=== PATIENT | female | born 1995 | race Caucasian/White ===

== ENCOUNTER 2016-09-03 19:34 | Emergency (ER) | payer MEDICAID, OTHER ==
[~2016-09-03] VITALS: Ht 157.5 cm; Wt 68.0 kg
[2016-09-03 19:37] VITALS: Ht 157.5 cm; Wt 68.0 kg
[2016-09-03] MEDS ORDERED: ACET500C5 PO (21:18)
[2016-09-03] MEDS ORDERED: ACETAMINOPHEN 325 MG TAB PO ONE (21:30)
--- NOTE | 2016-09-03 21:30 | ERD ---
ER Documentation Chief Complaint Date/Time DATE: 09/03/16 TIME: 21:22 Chief Complaint preg 16 weeks - c/o vomiting headache x 15 days (not currently vomiting) HPI 20-year-old female who is approximately 16 weeks is sent here by her clinic for IV fluids. Patient stated that she vomits about twice a day, and drinks 3 bottles of water a day. Her main concern is that she has had headache for about 2 weeks and she feels dizzy. Described dizziness as she is about to fall over, worse at night. Headache is not constant, pressure-like sensation across the whole head. Denies fever or chills. Denies photophobia. Denies abdominal or pelvic pain. Denies vaginal bleeding. Patient is . ROS All systems reviewed and are negative except as per history of present illness. Medications Home Meds Active Scripts Acetaminophen* (Tylophen*) 500 Mg Capsule, 1 CAP PO Q6H Y for PAIN AND OR ELEVATED TEMP, #20 CAP Prov:ANGELA SHAHID PARTS ADMINISTRATOR 09/03/16 PMhx/Soc Medical and Surgical Hx: pt denies Medical Hx, pt denies Surgical Hx Hx Alcohol Use: No Hx Substance Use: No Hx Tobacco Use: No Smoking Status: Never smoker Physical Exam Vitals Vital Signs Date Time Temp Pulse Resp B/P Pulse Ox O2 Delivery O2 Flow Rate FiO2 09/03/16 19:37 98.2 81 20 119/70 100 Physical Exam General: Well-developed, well-nourished, conscious and coherent, in no distress Skin: Warm and dry without rash, good texture and turgor Head: Normocephalic without evidence of trauma Eyes: Sclera and conjunctivae normal; pupils equal, round, and reactive to light; extraocular movements are intact Neck: Supple without meningismus or adenopathy. Carotids are equal. Trachea midline. No bruits or JVD. Bilateral sternocleidomastoid and upper trapezius muscle tightness noted. Chest: Normal AP diameter. Good expansion without retractions. Nontender. Lungs are clear to auscultate bilaterally with good tidal volume Heart: Regular rate and rhythm. No murmur, rub, or gallops heard Abdomen: Soft and nontender without masses, guarding, or rebound. Bowel sounds are active. No hepatosplenomegaly Back: Without spinal or CVA tenderness Pelvis: Nontender to palpation and stable to compression Extremities: Full range of motion. Good strength bilaterally. No clubbing, cyanosis, or edema. Peripheral pulses are intact. Sensation intact Neuro: Alert and oriented 4, GCS 15. Cranial nerves grossly intact. Motor and sensory exams nonfocal. Moves all extremities. Speech clear. Gait normal Results 24 hrs Current Medications Medications (Trade) Dose Ordered Sig/Bridget Route PRN Reason Start Time Stop Time Status Last Admin Dose Admin Acetaminophen (Tylenol Tab) 650 mg ONCE ONCE PO 09/03/16 21:30 09/03/16 21:31 09/03/16 21:21 Procedures/MDM Well-appearing 20-year-old female who is approximately 16 weeks is complaining of headache 2 weeks. Her symptoms exam findings are consistent with tension headache. Ibuprofen given to the patient in the ED for pain. Patient is advised on using heating pad and obtain massage to help ease her headache Patient sent here by her clinic for IV fluids. Since patient stated that she only vomits twice a day, and able to drink 3 bottles of water as a day. I doubt that she has hyperemesis gravidarum, I doubt that she is needing IV fluid treatment at this time. Patient stated that she has the antinausea medication given by her clinic. Advised patient to continue to maintain fluid intake. But return to ED if she is unable to maintain a fluid intake due to vomiting. Patient does not have any pelvic pain or vaginal bleeding, I doubt threatened . Patient appears well, stable for discharge and outpatient management. Medical decision making shared with patient and family. Education provided to patient and family. Patient and family expressed understanding of the plan. Medications on discharge: Tylenol. Follow-up: Primary care provider in 2-3 days or return to ED if worse. Disclaimer: Inadvertent spelling and grammatical errors are likely due to EHR/ dictation software use and do not reflect on the overall quality of patient care. Also, please note that the electronic time recorded on this note does not necessarily reflect the actual time of the patient encounter. Departure Diagnosis: Primary Impression: Headache Headache type: tension-type Headache chronicity pattern: acute headache Intractability: not intractable Qualified Code: G44.209 - Acute non intractable tension-type headache Additional Impression: Weeks of gestation: 16 weeks Qualified Code: Z3A.16 - 16 weeks gestation of Condition: Stable Patient Instructions: Self-Care for Headaches, Headache, Tension Referrals: [facility] Usted se sosa hecho un examen mdico de control que le indica que no est en wilfrido condicin que requiera tratamiento urgente en el Departamento de Emergencia. Un estudio ms profundo y el tratamiento de [place] condicin pueden esperar sin ningn riesgo hasta que usted sea atendida/o en el consultorio de [place] mdico o wilfrido cl arsh. Es responsabilidad suya arreglar wilfrido holger para el seguimiento del oliverio. MANEJO DE CONDICIONES NO URGENTES EN EL FUTURO 1) Si usted tiene un mdico de atencin primaria: Usted debera llamar a [place] mdico de atencin primaria antes de venir al departamento de emergencia. Despus de las horas de consultorio, [place] doctor o [place] asociado/a est disponible por telfono. El mdico o enfermero de monique en el servicio telefnico puede asesorarle por elva medio para atender el problema, o oliverio contrario se puede programar wilfrido holger. 2) Si usted no tiene un mdico de atencin primaria: Llame al mdico o clnica de referencia que aparece abajo praneeth las horas de consultorio para hacer wilfrido holger para que le vean. CLINICAS: [facility] [phone] [address] [facility] [phone] [facility] [phone] [facility]. [facility] 339 [phone] [address] [place] [phone] [facility]. [phone] SPARE PERSON [place] [address] [facility] [address] [place] [address] OFFICE FAX , MATI[place] [address] [place] [address] [address]. DIAZ, [place] [address] [place] [address] DR [facility]NA[facility]IDES, [facility] [address] [address] [facility], [address], [place] [address] DR UMANZOR, [facility] [address] [place] [address] [facility] [address] [place] [address] [address] [facility] [address] - [address] EMMANUEL, CHELLE [address], [place] [address] DR VENTURA, ZUNILDA [address] [facility]. [address], [place] [address] DR TORRES, FARID [address] [place] [address] Additional Instructions: Llame al doctor MAANA y stanislaw wilfrido HOLGER PARA DENTRO DE 2-3 GUTIÉRREZ.Dgale a la secretaria que nosotros le instruimos hacer esta holger.Avise o llame si gilliland condicin se empeora antes de la holger. Regresa aqui si peor o no mejor. ANGELA SHAHID NP Sep 03, 2016 21:30
== END 2016-09-03 21:31 | disposition home or self-care (01) ==
LOC: FTE 19:34
DX: O99.352 Diseases of the nervous system complicating pregnancy, second trimester (principal); G44.209 Tension-type headache, unspecified, not intractable; Z3A.16 16 weeks gestation of pregnancy
CPT/HCPCS: Z7502; Z7610; 99283

== ENCOUNTER 2017-01-08 20:09 | Outpatient (CLI) | payer MEDICAID ==
[~2017-01-08] VITALS: Ht 139.7 cm; Wt 72.1 kg
[~2017-01-08 20:09] MED LIST: ACET500C5 PO
[2017-01-08 20:29] VITALS: Ht 139.7 cm; Wt 72.1 kg
[2017-01-08 20:31] VITALS: BP 120/77; PULSE 96; RESP 18
--- NOTE | 2017-01-08 21:20 | RADRPT ---
PROCEDURE: US OB. CLINICAL INDICATION: Size and dates TECHNIQUE: Multiple sonographic images of the pelvis and gravid uterus were obtained. The images were reviewed on a PACS workstation. COMPARISON: No prior studies are available for comparison. FINDINGS: There is a single viable intrauterine gestation. Cardiac activity is present with 142 beats per min jacki. There is a vertex presentation. The placenta is anterior. There is no evidence for an abruption or placenta previa. Measurements were made in order to determine age. The results are as follows: BPD =7.7 cm HC =27.8 cm AC =26.1 cm FL =5.9 cm Estimated gestational age of approximately 30 weeks and 4 days based on ultrasound measurements. Clinical age: 33 weeks and 2 days. The estimated date of delivery is 03/15/17, based on ultrasound measurements. The EFW = 1565 g, <3%, based on LMP age. RPTAT: AA IMPRESSION: Single viable intrauterine gestation of approximately 30 weeks and 4 days based on ultrasound measu rements. .Cayden Blanco MD, Date Time Electronically viewed and signed by .Cayden Blanco MD, on 01/08/2017 21:20 .S/
--- NOTE | 2017-01-08 21:21 | RADRPT ---
PROCEDURE: US OB biophysical profile. CLINICAL INDICATION: decreased movements, TECHNIQUE: Multiple sonographic images of the pelvis were obtained. The images were reviewed on a PACS workstation. COMPARISON: No prior studies are available for comparison. FINDINGS: There is a single viable intrauterine gestation. Cardiac activity is present with 140 beats per min [place]. There is a vertex presentation. The placenta is anterior. There is no evidence of placental abruption. There is a normal amount of amniotic fluid with an BARYR = 9.8 cm. Biophysical profile: movement 2/2 tone 2/2. breathing 2/2 BARRY 2/2 Total 09/15 RPTAT: AA . IMPRESSION: Normal biophysical profile. . .Cayden Blanco MD, MD Date Time Electronically viewed and signed by .Cayden Blanco MD, MD on 01/08/2017 21:20 .S/
--- NOTE | 2017-01-08 22:06 | PN ---
Triage Information Date/Time Reason for visit: Oligohydramnios Weeks of Gestation 33w 2d /Para Objective Vital Signs Date Time Temp Pulse Resp B/P Pulse Ox O2 Delivery O2 Flow Rate FiO2 01/08/17 20:31 98.1 96 18 120/77 Heart Rate Comments reactive Contractions: None Results/Medications Imaging Results BPP 8/8, BARRY 9.8, efw 1565g c/w 3% Disposition: Discharge Assessment/Plan 21 y/o at 33w 2d with IUGR, normal BARRY -discharge home -f/u with OB, discussed perinatology and biweekly NSTs WELLINGTON DEMARCO Jan 08, 2017 22:06
--- NOTE | 2017-01-08 22:54 | TRIAGE ---
OB Triage Datetime Report Generated by CPN: 01/08/2017 22:54 Datetime: 01/08/2017 22:15 Stage of : OB Triage Datetime: 01/08/2017 21:58 Labor Evaluation Frequency: 0 Monitor Mode: External Resting Tone [place]: Relaxed Heart Rate FHR Baseline Rate: 125 Monitor Mode: External US Variability: Moderate 6-25 bpm Accelerations: 15X15 Decelerations: None Category: Category I Datetime: 01/08/2017 21:51 Stage of : OB Triage Datetime: 01/08/2017 21:41 Stage of : OB Triage Datetime: 01/08/2017 21:25 Vaginal Exam Membrane Status: Intact Datetime: 01/08/2017 21:00 Stage of : OB Triage Monitor Mode: External Monitor Mode: External US Datetime: 01/08/2017 20:40 Stage of : OB Triage Labor Evaluation Frequency: 0 Monitor Mode: External Resting Tone [place]: Relaxed Heart Rate FHR Baseline Rate: 140 Monitor Mode: External US Variability: Moderate 6-25 bpm Accelerations: 15X15 Decelerations: None Category: Category I Datetime: 01/08/2017 20:26 Stage of : OB Triage Assessment Type: Admission Assessment Maternal Assessment Level of Consciousness: Fully Conscious DTR's/Clonus: DTRs 2+; No Clonus Headache: Denies Blurred Vision: No Respiratory Effort: Unlabored; Regular Rhythm; Equal Expansion Breath Sounds, Left: Clear and Equal Breath Sounds, Right: Clear and Equal Nausea/Vomiting: Denies RUQ Epigastric Pain: Denies Facial Edema: None Temperature Route: Axillary Fall Risk Assessment History of Falling: (0) No Secondary Diagnosis: (0) No Ambulatory Aid: (0) Bedrest/Nurse Assist IV Therapy: (0) No Gait: (0) Normal/Bedrest/Immobile Mental Status: (0) Oriented to Own Ability Fall Score: 0 Fall Risk Score Definition: No Risk: No action required Datetime: 01/08/2017 20:22 Time of Arrival: 01/08/2017 19:58 EGA: 33.2 Arrived By: Ambulatory Chief Complaint: SENT FROM CLINIC FOR R/O LOW BARRY. PT FATOU SHE HAS SOME BACK PAIN Movement: Present Contractions: Irregular Rupture of Membranes: Unsure Vaginal Bleeding: None Vaginal Discharge: Present Recent Sexual Intercouse: Denies Abdominal Trauma: Not Applicable Patient Complaints: Contractions; Back Pain Time Provider Notified: 01/08/2017 20:30 Provider Notified: ELIZABETHJE Initial Plan: EFM, US NST BARRY BPP, EFW Datetime: 01/08/2017 20:21 Time of Arrival: 01/08/2017 19:58 Datetime: 01/08/2017 20:16 Labor Evaluation Frequency: none Resting Tone [place]: Relaxed Contraction Comments: placed on efm Heart Rate FHR Baseline Rate: 145 Monitor Mode: External US
== END 2017-01-08 22:17 | disposition home or self-care (01) ==
LOC: OBT 20:09 → L-D 20:10 → OBT 22:17
PROVIDERS: ATTEND Obstetrics & Gynecology
DX: O41.03X0 Oligohydramnios, third trimester, not applicable or unspecified (principal); Z3A.33 33 weeks gestation of pregnancy
CPT/HCPCS: 76815; 76818

== ENCOUNTER 2017-01-13 12:03 | Inpatient (IN) | payer MEDICAID ==
[~2017-01-13] VITALS: Ht 152.4 cm; Wt 71.2 kg
[2017-01-13 12:46] VITALS: BP 115/69; PULSE 93; RESP 18
[2017-01-13] MEDS ORDERED: LACTATED RINGER'S 500 ML IV ONE (14:00)
[2017-01-13] MEDS: BETAMET NA PHOS/AC(6 MG/ML) 5ML INJ IM SCH (15:50)
[2017-01-13] MEDS: LACTATED RINGER'S 1,000 ML IV SCH ×2 (15:54→22:17)
--- NOTE | 2017-01-13 23:43 | HP ---
Date/Time of Note Date/Time of Note DATE: 01/13/17 TIME: 23:38 OB - History Hx of Present Free Text/Dictation January 13, 2017 : 3 Para: 1 Care: Good Care Ultrasounds: Abnormal US findings (IUGR and borderline low amniotic fluid), Other Abnormal Ultrasound Findings: IUGR Borderline low amniotic fluid noted today and ultrasound. BARRY 5.7 Obstetrical Complications: Growth Restriction, Other (IUGR) Medical Complications: None Other Concerns: 21-year-old with IUP at 34 weeks and 2 days today here for NST/BPP due to IUGR. She was noted to have borderline amniotic fluid. BARRY was 5.7. Due to low BARRY and IUGR patient was admitted to antepartum service for IV hydration for 24 hours and repeat BARRY. She also will be monitored continuously. Due to the risk of delivery secondary to IUGR and borderline low amniotic fluid discussed with the patient regarding steroids. Will receive the first dose of steroids today and the second after 24 hours. She also will be seen by perinatology and neonatology as well. Patient denies any symptom or complaint. Past Family/Social History * Past Medical, Surgical, Family and Obstetric Histories reviewed from chart. OB Admission Exam Vital Signs Vital Signs Vital Signs Date Time Temp Pulse Resp B/P Pulse Ox O2 Delivery O2 Flow Rate FiO2 01/13/17 12:46 98.0 93 18 115/69 Room Air Physical Exam HEENT: WNL Heart: Rhythm Normal Lungs: Clear Abdomen: WNL Reflexes: Normal Cervical Dilatation: None Effacement: 0% Station: -3 OB Assessment/Plan Other Assessment: IUP at 34 weeks and 2 days IUGR Low amniotic fluid noted. BARRY 5.7 Patient currently being followed by testing twice a weeks due to IUGR Will be admitted for IV hydration Repeat ultrasound after 24 hours of hydration Continuous monitoring Consider anterior steroid. Will receive first dose today and a second dose after 24 hours Neonatology /perinatology consultation Plan of care discussed with the patient. Patient verbalized understanding and had no questions HOANG MANCIA MD Jan 13, 2017 23:43
[2017-01-14] MEDS: LACTATED RINGER'S 1,000 ML IV SCH ×3 (04:59→19:30)
--- NOTE | 2017-01-14 05:34 | RADRPT ---
PROCEDURE: Biophysical profile. CLINICAL INDICATION: Pelvic pain. TECHNIQUE: Multiple sonographic images of the pelvis were obtained with transabdominal technique. COMPARISON: 01/08/2017. FINDINGS: There is a single living intrauterine gestation with the fetus in a vertex position. The placenta i s anterior in location, grade II. heart tones of 136 beats per minute are identified. There i s decreased amniotic fluid volume with an BARRY of 3.8 cm. breathing movements = 2 Gross body movements = 2 tone = 2 Qualitative AFV = 0 IMPRESSION: Biophysical profile 6 out of 8. Oligohydramnios with an BARRY of 3.8 cm. A call report was made to the patient's sherman nurse (Merna) at 05:30 a.m. .Keyshawn Boyer MD, MD Date Time Electronically viewed and signed by .Keyshawn Boyer MD, on 01/14/2017 05:34 .T/
[2017-01-14] MEDS: PRENATAL VITAMIN PO SCH (10:31)
[2017-01-14] MEDS: FERROUS SULFATE (EC) 325 MG TAB PO SCH (10:31)
--- NOTE | 2017-01-14 13:15 | QN ---
Documentation Comment She is afebrile her vital signs are stable, heart tracing reactive with no deceleration and some accelerations. BARRY today 3.6, has she has received 2 doses of steroids. Consultation with perinatologist recommended hydration with daily BARRY, and to continue expecting management. MARISABEL PIMENTEL MD Jan 14, 2017 13:15
[2017-01-14] MEDS: BETAMET NA PHOS/AC(6 MG/ML) 5ML INJ IM SCH (15:45)
--- NOTE | 2017-01-14 17:47 | CONS ---
DATE OF ADMISSION: 01/13/2017 DATE OF CONSULTATION: 01/14/2017 This is a followup note on the perinatology consult done in the clinic. I do recommend, since her A FI today is less than the BARRY at the time of admission yesterday, the patient should be managed in-h ouse with continuous heart tone monitoring. Delivery is recommended if persistent nonreassuri ng heart tones, if the BARRY lowers further or if there is nonreassuring umbilical artery Dopple r studies as the patient is IUGR; otherwise at 37 weeks. Please note that I reviewed the patient's heart tone status. There are some spontaneous decel erations but in general, heart tone is reassuring but it has to be monitored very, very closel y as decreased heart tones and the baby's IUGR increases the risk of nonreassuring heart tones. Dictated By: BLAS WHITFIELD MD ST/NTS Conf#: [id number] DID#: [id number] CC: MARISABEL PIMENTEL MD;*EndCC*
[2017-01-15] MEDS: LACTATED RINGER'S 1,000 ML IV SCH ×3 (01:52→15:40)
[2017-01-15] MEDS: PRENATAL VITAMIN PO SCH (09:56)
[2017-01-15] MEDS: FERROUS SULFATE (EC) 325 MG TAB PO SCH (09:56)
--- NOTE | 2017-01-15 14:13 | PERINOTE ---
Date/Time of Note Date/Time of Note DATE: 01/15/17 TIME: 14:08 Assessment/Recommendations Other Assessments Oligohydramnios, prior to term History of variable decelerations, none seen on recent record Recommendations: Would perform daily BPP. If the BPP is less than 6 (including NST), would favor delivery. If the BPP is 6 or more and the BARRY remains less than 5, would deliver at 37 weeks GA. OB Subjective Free Text/Dictaton Patient admitted with oligohydramnios not responsive to hydration. HD# 3 IUP @ 34W4D Complaints/Overnight events BARRY on 01/14 is 3.8cm, with BPP of 6/8 Current Medications Current Medications Lactated Ringer's (Lr) 1,000 ml @ 150 mls/hr Q6H40M IV Last administered on 09:50; Admin Dose 150 MLS/HR; Start 01/13/17 at 15:28 Prenat Multivit/ [place]/Iron/Folic Ac () 1 tab DAILY PO Last administered on 01/15/17 09:56; Admin Dose 1 TAB; Start 01/14/17 at 09:00 Ferrous Sulfate (Ferrous Sulfate (Ec)) 325 mg DAILY PO Last administered on 09:56; Admin Dose 325 MG; Start 01/14/17 at 09:00 Acetaminophen (Tylenol Tab) 650 mg Q4H PRN PO PAIN AND OR ELEVATED TEMP; Start 01/13/17 at 15:30 OB Admission Exam Physical Exam Vitals: Vital Signs Date Time Temp Pulse Resp B/P Pulse Ox O2 Delivery O2 Flow Rate FiO2 01/13/17 12:46 98.0 93 18 115/69 Room Air Heart Rate: 140's Accelerations: Accelerations Present Decelerations: No Decelerations Varibility: Moderate Contractions on Admission: None CLAUDE REINOSO MD Jan 15, 2017 14:13
--- NOTE | 2017-01-15 16:30 | RADRPT ---
PROCEDURE: Obstetrical ultrasound for biophysical profile CLINICAL INDICATION: Biophysical profile. . TECHNIQUE: Obstetrical ultrasound of the uterus for biophysical profile. Transabdominal views are obtained. COMPARISON: US PELVIS 01/14/2017 FINDINGS: Single intrauterine gestation. Presentation: Cephalic. Placenta: Anterior. No evidence of placental abruption. No evidence of placenta previa. breathing movement = 2/2 tone = 2/2 motion = 2/2 BARRY = 2/2 BARRY = 9.6 cm heart rate: 132 beats per minute IMPRESSION: Single intrauterine gestation. Biophysical profile 09/15 BARRY = 9.6 cm, improved RPTAT: AADD .Russell Grubbs MD, MD Date Time Electronically viewed and signed by .Russell Grubbs MD, on 01/15/2017 16:29 .B/
--- NOTE | 2017-01-15 16:38 | RADRPT ---
PROCEDURE: Umbilical artery Doppler. CLINICAL INDICATION: Small for gestational age. TECHNIQUE: Multiple sonographic images of the gravid uterus were obtained utilizing reyes-scale katherin ging. Sagittal and transverse images were obtained. Umbilical artery Doppler was performed. The i mages were reviewed on a PACS workstation. COMPARISON: No prior studies are available for comparison. FINDINGS: There is a single live intrauterine . heart rate is 141 beats per minute. The umbilical artery systolic to diastolic ratio measured at 3 locations is 2.4, 2.6, and 2.9. Placenta is anterior left grade II. Position is cephalic. IMPRESSION: 1. The umbilical artery systolic to diastolic ratio is 2.4, 2.6, and 2.9 measured at 3 separate loc ations. RPTAT: QQ .Lele Borrero MD, Date Time Electronically viewed and signed by .Lele Borrero MD, on 01/15/2017 16:38 .R/
--- NOTE | 2017-01-15 19:34 | QN ---
Documentation Comment Patient has no complaint Afebrile VSS Strip Category I BPP 09/15 BARRY 9.6 Continue with present care. DEANNA DIAZ MD Jan 15, 2017 19:34
[2017-01-16] MEDS: LACTATED RINGER'S 1,000 ML IV SCH ×3 (01:27→07:45)
[2017-01-16] MEDS: PRENATAL VITAMIN PO SCH (08:56)
[2017-01-16] MEDS: FERROUS SULFATE (EC) 325 MG TAB PO SCH (08:56)
--- NOTE | 2017-01-16 15:42 | RADRPT ---
PROCEDURE: US OB. CLINICAL INDICATION: Pelvic pain, oligohydramnios TECHNIQUE: Multiple sonographic images of the pelvis were obtained. The images were reviewed on a PACS workstation. COMPARISON: 01/15/2017 FINDINGS: There is a single viable intrauterine gestation. Cardiac activity is present with 138 beats per min jacki There is a vertex presentation. The placenta is anterior. There is no evidence for an abruption or placenta previa. There is a normal amount of amniotic fluid with an BARRY = 16.7 cm There are no adnexal masses.. IMPRESSION: 1. Single viable intrauterine gestation in cephalic presentation. 2. Anterior placenta without evidence of previa or abruption. 3. Normal amount of amniotic fluid with an BARRY of 16.7 cm RPTAT:AAJJ Physician Fred Date Time Electronically viewed and signed by Physician Fred on 01/16/2017 15:42 /
--- NOTE | 2017-01-16 17:21 | QN ---
Documentation Comment No complaint Afebrile VSS Strip category I BARRY 16 Continue with in hospital care. DEANNA DIAZ MD Jan 16, 2017 17:21
[2017-01-17] MEDS: FERROUS SULFATE (EC) 325 MG TAB PO SCH (08:56)
[2017-01-17] MEDS: PRENATAL VITAMIN PO SCH (08:56)
--- NOTE | 2017-01-17 10:31 | RADRPT ---
PROCEDURE: Limited OB ultrasound. CLINICAL INDICATION: Amniotic fluid volume. Oligohydramnios on 01/15/2017 TECHNIQUE: Sonographic evaluation to assess the amniotic fluid volume was performed. Transabdomin al imaging of the gravid uterus was performed. COMPARISON: 01/16/2017 FINDINGS: Single live intrauterine with cardiac activity is identified. The amniotic fluid in dex equals 14.6 cm. Cephalic presentation. Heart rate 134 beats per minute. IMPRESSION: 1. Amniotic fluid index within normal limits equals 14.6 cm. RPTAT: QQ .Don August MD, MD Date Time Electronically viewed and signed by .Don August MD, MD on 01/17/2017 10:30 .L/
--- NOTE | 2017-01-17 14:30 | QN ---
Documentation Comment C/O slight nausea. No other compllaint. AFebrile VSS Strip Category I BARRY 14 Will get CBC, CMP and U/A. Continue with in hospital care. DEANNA DIAZ MD Jan 17, 2017 14:30
[2017-01-17 15:03] LABS: BASOPHILS % 0.2 % (0.0-2.0); EOSINOPHILS # 0.1 10^3/ul (0.0-0.5); EOSINOPHILS % 0.9 % (0.0-7.0); HEMATOCRIT 40.4 % (37.0-47.0); HEMOGLOBIN 13.2 g/dl (12.0-16.0); LYMPHOCYTES # 1.2 10^3/ul (0.8-2.9); LYMPHOCYTES % 14.2 % (15.0-51.0); MEAN CORPUSCULAR HEMOGLOBIN 28.1 pg (29.0-33.0); MEAN CORPUSCULAR HGB CONC 32.7 g/dl (32.0-37.0); MEAN CORPUSCULAR VOLUME 86.1 fl (82.0-101.0); MEAN PLATELET VOLUME 11.4 fl (7.4-10.4); MONOCYTE # 0.8 10^3/ul (0.3-0.9); MONOCYTES % 9.8 % (0.0-11.0); NEUTROPHIL # 6.3 10^3/ul (1.6-7.5); NEUTROPHILS % 73.3 % (39.0-77.0); PLATELET COUNT 236 10^3/UL (140-415); RED BLOOD COUNT 4.69 10^6/ul (4.20-5.40); RED CELL DISTRIBUTION WIDTH 14.1 % (11.5-14.5); WHITE BLOOD COUNT 8.6 10^3/ul (4.8-10.8)
[2017-01-17 15:29] LABS: ALBUMIN 3.3 g/dl (3.3-4.9); ALBUMIN/GLOBULIN RATIO 0.97; BILIRUBIN,INDIRECT 0.2 mg/dl (0-1.1); BILIRUBIN,TOTAL 0.2 mg/dl (0.2-1.3); CREATININE 0.53 mg/dl (0.44-1.00); POTASSIUM 3.5 mmol/L (3.5-5.1); TOTAL PROTEIN 6.7 g/dl (6.1-8.1)
[2017-01-17 16:39] LABS: ADD UMIC NO; UR ASCORBIC ACID NEGATIVE (NEGATIVE); UR BILIRUBIN (Dip) NEGATIVE (NEGATIVE); UR BLOOD (Dip) NEGATIVE (NEGATIVE); UR CLARITY CLEAR (CLEAR); UR COLOR STRAW (YELLOW); UR GLUCOSE (Dip) NEGATIVE (NEGATIVE); UR KETONES (Dip) NEGATIVE (NEGATIVE); UR LEUKOCYTE ESTERASE (Dip) NEGATIVE Leu/ul (NEGATIVE); UR NITRITE (Dip) NEGATIVE (NEGATIVE); UR SPECIFIC GRAVITY (Dip) 1.004 (1.003-1.030); UR TOTAL PROTEIN (Dip) NEGATIVE (NEGATIVE); UR UROBILINOGEN (Dip) NEGATIVE (NEGATIVE)
[2017-01-17] MEDS: ACETAMINOPHEN 325 MG TAB PO PRN ×2 (16:49→22:45)
[2017-01-18] MEDS ORDERED: LACTATED RINGER'S 500 ML IV ONE
[2017-01-18] MEDS: LACTATED RINGER'S 1,000 ML IV SCH ×4 (01:18→20:52)
[2017-01-18] MEDS: ACETAMINOPHEN 325 MG TAB PO PRN ×2 (05:22→19:44)
[2017-01-18] MEDS: PRENATAL VITAMIN PO SCH (09:01)
[2017-01-18] MEDS: FERROUS SULFATE (EC) 325 MG TAB PO SCH (09:01)
[2017-01-18 14:14] LABS: BASOPHILS % 0.3 % (0.0-2.0); EOSINOPHILS % 0.3 % (0.0-7.0); HEMATOCRIT 40.5 % (37.0-47.0); HEMOGLOBIN 13.3 g/dl (12.0-16.0); LYMPHOCYTES # 0.8 10^3/ul (0.8-2.9); LYMPHOCYTES % 10.8 % (15.0-51.0); MEAN CORPUSCULAR HGB CONC 32.8 g/dl (32.0-37.0); MEAN CORPUSCULAR VOLUME 85.3 fl (82.0-101.0); MEAN PLATELET VOLUME 11.7 fl (7.4-10.4); MONOCYTE # 0.6 10^3/ul (0.3-0.9); MONOCYTES % 8.2 % (0.0-11.0); NEUTROPHIL # 6.1 10^3/ul (1.6-7.5); PLATELET COUNT 204 10^3/UL (140-415); RED BLOOD COUNT 4.75 10^6/ul (4.20-5.40); RED CELL DISTRIBUTION WIDTH 13.6 % (11.5-14.5); WHITE BLOOD COUNT 7.7 10^3/ul (4.8-10.8)
--- NOTE | 2017-01-18 14:25 | RADRPT ---
PROCEDURE: Obstetrical ultrasound for biophysical profile CLINICAL INDICATION: Biophysical profile. . TECHNIQUE: Obstetrical ultrasound of the uterus for biophysical profile. Transabdominal views are obtained. COMPARISON: US 01/17/2017; US PELVIS 01/15/2017 FINDINGS: Single intrauterine gestation. Presentation: Cephalic. Placenta: Anterior. No evidence of placental abruption. No evidence of placenta previa. breathing movement = 2/2 tone = 2/2 motion = 2/2 BARRY = 2/2 BARRY = 7.9 cm; previously 14.6 cm heart rate: 154 beats per minute IMPRESSION: Single intrauterine gestation. Biophysical profile 09/15 RPTAT: AADD .Russell Grubbs MD, MD Date Time Electronically viewed and signed by .Russell Grubbs MD, on 01/18/2017 14:25 .B/
--- NOTE | 2017-01-18 20:14 | QN ---
Documentation Comment C/O cold symptoms. No other complaint Afebrile VSS Strip Category I BPP 09/15 Continue with in hospital care. DEANNA DIAZ MD Jan 18, 2017 20:14
[2017-01-18] MEDS: SALINE 0.65% 45 ML NAS SPRAY NASAL PRN (23:57)
[2017-01-19] MEDS: LACTATED RINGER'S 1,000 ML IV SCH ×3 (04:47→20:36)
[2017-01-19] MEDS: GUAIFENESIN 20 MG/ML 5ML CUP PO PRN ×3 (04:49→12:51)
[2017-01-19] MEDS: FERROUS SULFATE (EC) 325 MG TAB PO SCH (09:31)
[2017-01-19] MEDS: SALINE 0.65% 45 ML NAS SPRAY NASAL PRN (09:31)
[2017-01-19] MEDS: PRENATAL VITAMIN PO SCH (11:22)
[2017-01-19] MEDS: DOCUSATE SODIUM 100 MG CAP PO PRN ×2 (11:22→20:44)
[2017-01-19] MEDS: ACETAMINOPHEN 325 MG TAB PO PRN (21:51)
--- NOTE | 2017-01-19 23:56 | QN ---
Documentation Comment No complaint Afebrile VSS Strip Category I BARRY 7.9 Continue with inhospital care. DEANNA DIAZ MD Jan 19, 2017 23:56
[2017-01-20] MEDS ORDERED: LACTATED RINGER'S 1,000 ML IV ONE
--- NOTE | 2017-01-20 02:57 | RADRPT ---
PROCEDURE: ULTRASOUND BIOPHYSICAL PROFILE CLINICAL INDICATION: 21-year-old female for viability. TECHNIQUE: Multiple sonographic images were obtained in order to perform a biophysical profile The images were reviewed on a PACS workstation. COMPARISON: Ultrasound biophysical profile January 18, 2017. FINDINGS: There is a single viable intrauterine gestation. There is a vertex presentation. Cardiac activity i s present at 163 beats per minute. The placenta is anterior. The results of the biophysical profile are as follows: breathing movement = 2/2 Gross body movement = 2/2 tone = 2/2 Qualitative amniotic fluid volume = 2/2 Amniotic fluid index equals 9.5 cm. This yields a biophysical profile score of 8/8. IMPRESSION: Biophysical profile score is 8/8. .Dwight Banks MD, Date Time Electronically viewed and signed by .Dwight Banks MD, on 01/20/2017 02:57 .M/
[2017-01-20] MEDS: CEPASTAT LOZENGE MT PRN ×5 (04:28→18:57)
[2017-01-20] MEDS: GUAIFENESIN 20 MG/ML 5ML CUP PO PRN ×5 (04:28→23:48)
[2017-01-20] MEDS: LACTATED RINGER'S 1,000 ML IV SCH ×3 (05:20→18:57)
--- NOTE | 2017-01-20 10:23 | QN ---
Documentation Comment Today BARRY is 9.5 biophysical 09/15 responding to hydration we will repeat BARRY a.m. if within normal planning of a.m. discharge MARISABEL PIMENTEL MD Jan 20, 2017 10:23
[2017-01-20] MEDS: PRENATAL VITAMIN PO SCH (10:39)
[2017-01-20] MEDS: DOCUSATE SODIUM 100 MG CAP PO PRN (10:39)
[2017-01-20] MEDS: FERROUS SULFATE (EC) 325 MG TAB PO SCH (10:40)
--- NOTE | 2017-01-20 11:21 | RADRPT ---
PROCEDURE: US OB. CLINICAL INDICATION: IUGR TECHNIQUE: Multiple sonographic images of the pelvis were obtained. The images were reviewed on a PACS workstation. COMPARISON: No prior studies are available for comparison. FINDINGS: There is a single intrauterine . presentation is cephalic. Placenta is anterior grade 1 to II. S/D ratio on cord insertion is 2.5 S/D ratio on mid cord 2.9 IMPRESSION: S/D ratio = 2.5-2.9 RPTAT: HH .Jose Flores MD, MD Date Time Electronically viewed and signed by .Jose Flores MD, on 01/20/2017 11:21 .W/
--- NOTE | 2017-01-20 12:26 | CONS ---
DATE OF ADMISSION: 01/13/2017 DATE OF CONSULTATION: 01/20/2017 PERINATOLOGY NOTE RECOMMENDATIONS: Continue with the continuous monitoring. There are episodes of tachycardia with essentially explained by maternal, not quite fever, but temperature of 100.2 maximum at 11:30 l ast night. She is having flu-like symptoms. Otherwise, overall reassuring. However, it should be monitored very closely. Last BARRY is 9.5 cm and she is to have an umbilical artery today and jodie perkins will notify me with the result. For the prime being, again, in-house management secondary to o verall category 2 strip[address] I spoke to [address] Greco and Shandra, the nurse, and I will see the patient pr esently tomorrow. Dictated By: BLAS JAMES/BETO Conf#: [id number] DID#: [id number]
[2017-01-20] MEDS: ACETAMINOPHEN 325 MG TAB PO PRN ×2 (14:23→23:54)
[2017-01-21] MEDS: LACTATED RINGER'S 1,000 ML IV SCH ×4 (01:12→21:46)
--- NOTE | 2017-01-21 02:40 | RADRPT ---
PROCEDURE: ULTRASOUND BIOPHYSICAL PROFILE CLINICAL INDICATION: 21-year-old female for viability. TECHNIQUE: Multiple sonographic images were obtained in order to perform a biophysical profile The images were reviewed on a PACS workstation. COMPARISON: Ultrasound biophysical profile January 20, 2017. FINDINGS: There is a single viable intrauterine gestation. There is a vertex presentation. Cardiac activity i s present at 141 beats per minute. The placenta is left lateral. The results of the biophysical pro file are as follows: breathing movement = 2/2 Gross body movement = 2/2 tone = 2/2 Qualitative amniotic fluid volume = 2/2 Amniotic fluid index equals 8.8 cm. This yields a biophysical profile score of 8/8. IMPRESSION: Biophysical profile score is 8/8. .Dwight Banks MD, MD Date Time Electronically viewed and signed by .Dwight Banks MD, on 01/21/2017 02:40 .M/
[2017-01-21] MEDS: FERROUS SULFATE (EC) 325 MG TAB PO SCH (09:12)
[2017-01-21] MEDS: PRENATAL VITAMIN PO SCH (09:16)
[2017-01-21] MEDS: DOCUSATE SODIUM 100 MG CAP PO PRN (10:18)
[2017-01-21] MEDS: GUAIFENESIN 20 MG/ML 5ML CUP PO PRN ×3 (10:18→23:38)
[2017-01-21] MEDS: SALINE 0.65% 45 ML NAS SPRAY NASAL PRN (10:21)
[2017-01-21] MEDS: CEPASTAT LOZENGE MT PRN ×3 (10:26→18:25)
--- NOTE | 2017-01-21 14:09 | QN ---
Documentation Comment Afebrile, vital signs are stable 35 weeks and 1/7 day today, ultrasound report calculates baby at 8th percentile ,her BARRY last night was 8.8cc, telephone consult with perinatologist recommended to continue IV hydration, with close observation, continues heart monitoring, and repeat BARRY a.m.. MARISABEL PIMENTEL MD Jan 21, 2017 14:08
--- NOTE | 2017-01-21 16:55 | CONS ---
DATE OF ADMISSION: 01/13/2017 DATE OF CONSULTATION: HISTORY OF PRESENT ILLNESS: The patient is a 35-weeks and 1 day with severe IUGR, initially was adm itted because of severe oligohydramnios. She received fluid and her fluid lately has been about 8 c m. However, she had some flu and some low grade fever with corresponding tachycardia and also she has been having some spontaneous decelerations, irregular, not frequent; however, they are happ ening more often than I would feel comfortable for her to be discharged home with. Therefore, jarad mmendation is in-house management with continuous heart tone monitoring, weekly Doppler studie s and delivery is recommended if the Dopplers are abnormal or oligohydramnios, or nonreassuring feta l heart tones category 3. Also, Shandra Peterson, the nurse, called me yesterday with the results of t he Doppler studies and the Doppler study values at that time were normal for gestational age. Dictated By: BLAS WHITFIELD MD ST/NTS Conf#: [id number] DID#: [id number] CC: MARISABEL PIMENTEL MD;*EndCC*
--- NOTE | 2017-01-21 16:55 | RADRPT ---
PROCEDURE: US Lower extremity Venous. CLINICAL INDICATION: Swelling and pain TECHNIQUE: Multiple sonographic images of the bilateral lower extremity deep venous system was obt ained utilizing grayscale, color-flow, compressive sonography and doppler imaging with augmentation. The images were reviewed on a PACS workstation. COMPARISON: None. FINDINGS: There is normal compressibility and flow within the bilateral common femoral, deep femoral, superfic ial femoral, posterior tibial, peroneal and popliteal veins. IMPRESSION: 1. No sonographic evidence for deep venous thrombosis within the bilateral lower extremities. RPTAT: [facility] Physician [place] Date Time Electronically viewed and signed by Physician Guanakito on 01/21/2017 14:34 BRODERICK/
[2017-01-21] MEDS: ACETAMINOPHEN 325 MG TAB PO PRN (18:25)
[2017-01-22] MEDS: LACTATED RINGER'S 1,000 ML IV SCH ×3 (03:43→16:03)
[2017-01-22] MEDS: CEPASTAT LOZENGE MT PRN ×2 (05:07→09:18)
--- NOTE | 2017-01-22 07:39 | RADRPT ---
PROCEDURE: OB ultrasound for biophysical profile CLINICAL INDICATION: Oligohydramnios, IUGR. TECHNIQUE: Multiple sonographic images of the pelvis were obtained. Transabdominal view of the gr avid uterus are available for review. The images were reviewed on a PACS workstation. COMPARISON: 01/21/2017 FINDINGS: breathing movement = 2/2 tone = 2/2 motion = 2/2 Quantitative amniotic fluid volume = 2/2 BARRY = 6.5 cm Single live intrauterine with cardiac activity at 142 beats per minute. There is a anterior placenta without previa or abruption. IMPRESSION: 1. Single living intrauterine gestation in cephalic position. 2. Biophysical profile = 8/8. 3. BARRY = 6.5 cm. RPTAT: [facility] Physician Torsten Date Time Electronically viewed and signed by Physician Torsten on 01/22/2017 07:39 /
[2017-01-22] MEDS: FERROUS SULFATE (EC) 325 MG TAB PO SCH (09:06)
[2017-01-22] MEDS: PRENATAL VITAMIN PO SCH (09:07)
[2017-01-22] MEDS: DOCUSATE SODIUM 100 MG CAP PO PRN (09:18)
[2017-01-22] MEDS: GUAIFENESIN 20 MG/ML 5ML CUP PO PRN (09:18)
[2017-01-22] MEDS ORDERED: OXYTOCIN 30 UNITS/LR 500 ML IV PRN ×2 (11:30→22:00)
[2017-01-22] MEDS ORDERED: CARBOPROST 250 MCG INJ IM PRN ×2 (11:30→22:00)
[2017-01-22] MEDS ORDERED: METHYLERGONOVINE 0.2 MG INJ IM PRN ×2 (11:30→22:00)
[2017-01-22] MEDS ORDERED: CEFAZOLIN 2 GM/50 ML (PMX) 50 ML IV SCH (11:30)
[2017-01-22] MEDS ORDERED: MISOPROSTOL 200 MCG TAB PR PRN ×2 (11:30→22:00)
[2017-01-22 12:19] LABS: BASOPHILS % 0.2 % (0.0-2.0); EOSINOPHILS % 0.2 % (0.0-7.0); HEMATOCRIT 42.9 % (37.0-47.0); LYMPHOCYTES # 1.2 10^3/ul (0.8-2.9); MEAN CORPUSCULAR HEMOGLOBIN 27.1 pg (29.0-33.0); MEAN CORPUSCULAR HGB CONC 32.6 g/dl (32.0-37.0); MEAN CORPUSCULAR VOLUME 83.1 fl (82.0-101.0); MONOCYTE # 0.3 10^3/ul (0.3-0.9); MONOCYTES % 7.1 % (0.0-11.0); NEUTROPHIL # 2.7 10^3/ul (1.6-7.5); PLATELET COUNT 195 10^3/UL (140-415); RED BLOOD COUNT 5.16 10^6/ul (4.20-5.40); RED CELL DISTRIBUTION WIDTH 13.4 % (11.5-14.5); WHITE BLOOD COUNT 4.2 10^3/ul (4.8-10.8)
[2017-01-22 12:32] LABS: INR 0.83; PROTIME 11.5 Sec (11.9-14.9); PT RATIO 0.9
[2017-01-22 12:33] LABS: PARTIAL THROMBOPLASTIN TIME 27.7 Sec (25.0-35.0)
[2017-01-22] MEDS ORDERED: morphine SULFATE/PF (10 MG/10 ML) INJ ONE (16:27)
[2017-01-22] MEDS ORDERED: ONDANSETRON 4 MG INJ ONE (16:27)
[2017-01-22] MEDS ORDERED: EPHEDrine SULFATE 50 MG/5 ML SYG ONE (16:27)
[2017-01-22] MEDS ORDERED: OXYTOCIN 10 UNIT INJ ONE (16:27)
[2017-01-22] MEDS ORDERED: OXYTOCIN 30 UNITS/LR 500 ML IV ONE (16:27)
[2017-01-22] MEDS ORDERED: METOCLOPRAMIDE 10 MG INJ ONE (16:27)
--- NOTE | 2017-01-22 18:00 | OPR ---
Operative Report Planned Procedure Free Text/Dictation 21 years old female SAB 1 EDC February 24, 2017 35 weeks and 2 days complicated with low amniotic fluid suspected IUGR at 8th percentile nonreassuring heart tracing at time category 2 and 3, history of previous section, perinatologist recommended delivery. Procedure date Jan 22, 2017 Procedure(s) Repeat Performed by see signature line Asbestos Surveyor cindy panda Anesthesiologist: COLTEN NICHOLS MD Pre-procedure diagnosis 35 weeks 3 days complicated with IUGR oligohydramnios nonreassuring heart tracing, previous perinatology consult recommended delivery Anesthesia Type: spinal Post-Procedure Post-procedure diagnosis Same as above Findings Live Baby girl 9 and 9 waited 30 lbs.15 ounces Estimated Blood Loss: 500 - 600 mls Specimen(s) Placenta sent to pathology Grafts/Implant(s) none Complication(s) none Pt Condition post procedure: stable Procedure Description Under satisfactory spinal anesthesia patient prepped and draped and placed in supine position. Pfannenstiel incision was made. Old scar was removed incision carried through the subcutaneous tissue. Fascia incised to the length of incision. Rectus muscle divided in midline. Peritoneum exposed and entered to a vertical incision. Exploration of abdomen revealed [gravid uterus at term normal -appearing tubes and ovaries.] Bladder flap was developed. Transverse incision was made in the lower segment of the uterus. Amniotic sac ruptured, [clear amniotic fluid noted.] Live baby girl was delivered from unengaged vertex.Naso oropharyngeal suction was performed. Baby handed to the team for immediate attention. Patient received 20 units of Pitocin. Placenta delivered manually intact. Uterine cavity cleaned with a wet sponge and drainage established. Uterus closed in 2 layers using Monocryl #1 in continuous fashion. Peritoneal cavity irrigated with warm saline. Sponge needle instrument reported to be correct. Abdominal peritoneum closed with 2-0 chromic catgut continuously. Fascia closed with #1 PDS in a continuous fashion. Subcutaneous tissue irrigated with warm saline and approximated with 2-0 chromic catgut skin closed with juan. Estimated blood loss [600 cc]. Urine bag containing [200] mL of [clear] urine. Patient tolerated procedure well and transferred to recovery room in good condition. MARISABEL PIMENTEL MD Jan 22, 2017 18:00
[2017-01-22] MEDS: OXYTOCIN 30 UNITS/LR 500 ML IV SCH ×2 (18:24→19:06)
[2017-01-22] MEDS ORDERED: DIPHENHYDRAMINE 50 MG INJ IV PRN (18:30)
[2017-01-22] MEDS ORDERED: morphine 4 MG/ML VIAL IV PRN (18:30)
[2017-01-22] MEDS ORDERED: morphine 2 MG INJ IV PRN (18:30)
[2017-01-22] MEDS ORDERED: morphine SULFATE/PF (10 MG/10 ML) INJ SPINAL ONE (18:30)
[2017-01-22] MEDS ORDERED: EPHEDrine SULFATE 50 MG/5 ML SYG IV PRN (18:30)
[2017-01-22] MEDS ORDERED: NALOXONE (0.4 MG/ML) INJ IV PRN (18:30)
[2017-01-22] MEDS ORDERED: ONDANSETRON 4 MG INJ IV PRN (18:30)
[2017-01-22] MEDS: KETOROLAC 30 MG INJ IV PRN (18:44)
[2017-01-22] MEDS ORDERED: LANOLIN 7 GM TUBE TOP PRN (22:00)
[2017-01-22] MEDS ORDERED: HYDROCODONE/APAP (5/325) TAB PO PRN ×2 (22:00)
[2017-01-22 22:10] VITALS: BP 101/56; PULSE 71; RESP 18
[2017-01-23] VITALS (7 sets, daily range): BP systolic 85–103; BP diastolic 51–76; PULSE 63–95; RESP 16–20
[2017-01-23] MEDS: OXYTOCIN 30 UNITS/LR 500 ML IV SCH ×6 (00:45→19:55)
[2017-01-23] MEDS ORDERED: CEFAZOLIN 1 GM/50 ML (PMX) 50 ML IVPB SCH (02:00)
[2017-01-23] MEDS: KETOROLAC 30 MG INJ IV PRN ×3 (05:52→17:08)
--- NOTE | 2017-01-23 07:43 | CONS ---
DATE OF ADMISSION: 01/13/2017 DATE OF CONSULTATION: 01/22/2017 Dr. Cardona called from the hospital to inform that the patient's amniotic fluid has decreased from 8.9 to 6.5 cm. I reviewed the heart tone strip and she continues to have very subtle spontane ous deceleration lasting for about 1 to 2 up to 3 minutes and area of the nonreactivity, overall, ca tegory 2 and worsening. Given the chronic oligohydramnios and status, I do recommend delivery . Please explain to the patient the risk of delivery at this point is lung immaturity, that c ould necessitate a NICU admission; however none delivery at this point there is a high risk of adver se effect on perfusion also. Dictated By: BLAS WHITFIELD MD ST/NTS Conf#: [id number] DID#: [id number] CC: MARISABEL PIMENTEL MD;*EndCC*
[2017-01-23 08:41] LABS: EOSINOPHILS % 0.5 % (0.0-7.0); HEMATOCRIT 38.9 % (37.0-47.0); HEMOGLOBIN 12.9 g/dl (12.0-16.0); LYMPHOCYTES # 1.8 10^3/ul (0.8-2.9); LYMPHOCYTES % 28.2 % (15.0-51.0); MEAN CORPUSCULAR HEMOGLOBIN 27.9 pg (29.0-33.0); MEAN CORPUSCULAR HGB CONC 33.2 g/dl (32.0-37.0); MEAN PLATELET VOLUME 10.9 fl (7.4-10.4); MONOCYTE # 0.4 10^3/ul (0.3-0.9); MONOCYTES % 6.2 % (0.0-11.0); NEUTROPHIL # 4.2 10^3/ul (1.6-7.5); NEUTROPHILS % 64.6 % (39.0-77.0); PLATELET COUNT 189 10^3/UL (140-415); RED BLOOD COUNT 4.63 10^6/ul (4.20-5.40); RED CELL DISTRIBUTION WIDTH 13.6 % (11.5-14.5); WHITE BLOOD COUNT 6.4 10^3/ul (4.8-10.8)
[2017-01-23] MEDS: SENNA/DOCUSATE NA (8.6MG/50MG) TAB PO SCH ×2 (09:55→20:42)
--- NOTE | 2017-01-23 11:59 | QN ---
Documentation Comment Post day 1 Afebrile, vital signs are stable Complaining of coughing, Abdomen soft, good bowel sounds able to pass flatus ,no bowel movement incision dry. Ambulation encouraged cough medication prescribed MARISABEL PIMENTEL MD Jan 23, 2017 11:59
[2017-01-23] MEDS: GUAIFENESIN/DM 5ML CUP PO PRN (17:09)
[2017-01-23] MEDS ORDERED: HYDROCODONE/APAP (5/325) TAB PO PRN (19:00)
[2017-01-23] MEDS ORDERED: OXYCODONE/ACETAMINOPHEN (5/325) TAB PO PRN ×2 (19:00)
[2017-01-23] MEDS: HYDROCODONE/APAP (5/325) TAB PO PRN (20:42)
[2017-01-23] MEDS: IBUPROFEN 600 MG TAB PO SCH (20:43)
[2017-01-24] MEDS: IBUPROFEN 600 MG TAB PO SCH ×5 (00:19→23:57)
[2017-01-24 02:34] VITALS: BP 97/61; PULSE 89; RESP 20
[2017-01-24 04:05] VITALS: BP 97/49; PULSE 62; RESP 18
[2017-01-24 08:00] VITALS: BP 94/74; PULSE 75; RESP 16
[2017-01-24] MEDS: SENNA/DOCUSATE NA (8.6MG/50MG) TAB PO SCH ×2 (08:51→20:21)
[2017-01-24] MEDS: GUAIFENESIN/DM 5ML CUP PO PRN ×3 (10:11→23:57)
--- NOTE | 2017-01-24 11:48 | QN ---
Documentation Comment Post day 2 Afebrile vital signs are stable, Abdomen soft incision dry. Bowel sounds present, no bowel movement extremities normal, enema recommended. Plan of possible a.m. discharge discussed with the patient MARISABEL PIMENTEL MD Jan 24, 2017 11:48
[2017-01-24] MEDS ORDERED: NA PHOSPHATE/BIPHOS 133 ML ENEMA PR ONE (12:00)
[2017-01-24 16:20] VITALS: BP 97/64; PULSE 93; RESP 14
[2017-01-24] MEDS ORDERED: INFLUENZA VIRUS VACCINE 0.5 ML SYG IM* ONE (17:00)
[2017-01-24 20:00] VITALS: BP 109/66; PULSE 93; RESP 15
[2017-01-24] MEDS: HYDROCODONE/APAP (5/325) TAB PO PRN (20:23)
[2017-01-25 04:31] VITALS: BP 93/56; PULSE 73; RESP 16
[2017-01-25] MEDS: GUAIFENESIN/DM 5ML CUP PO PRN (04:48)
[2017-01-25] MEDS: IBUPROFEN 600 MG TAB PO SCH ×2 (05:45→12:06)
[2017-01-25 08:10] VITALS: BP 100/62; PULSE 72; RESP 16
[2017-01-25] MEDS ORDERED: DIPHTH/TET/ACEL PERTUSS (ADULT) 0.5 ML VIAL IM* ONE (09:00)
[2017-01-25] MEDS: SENNA/DOCUSATE NA (8.6MG/50MG) TAB PO SCH (09:31)
--- NOTE | 2017-01-25 13:05 | PD.PPDC ---
TRANSITIONAL CARE MANAGER Discharge Instruction Condition Patient Condition: Good Diet Diet: Resume Regular Diet Activity/Restrictions Restrictions: No Exercising No Lifting No Driving No Sexual Activity Nothing in the Vagina No [place] No Tampons, douche Wound/Drain Care Instructions Wound/Drain Care Instructions: Remove Steri Strips in 1 week Follow-up Follow-up with Physician: 1, Week/Weeks Provider Information: Post repeat instructions given recommended to make appointment to be seen at the clinic in 1 week Return to clinic for HONEY LIQUEFIER Instructions: Fever greater than 101 Chills Worsening abdominal pain Excessive Vaginal Bleeding More than 2 pads per hour Unable to tolerate diet OB Instructions: Breast Tenderness Depression Blurried Vision Headache Surgical Instructions: Incisional Drainage Incisional Redness MARISABEL PIMENTEL MD Jan 25, 2017 13:05
--- NOTE | 2017-01-25 13:10 | DS ---
Date/Time of Note Date/Time of Note DATE: 01/25/17 TIME: 13:08 Discharge Summary Admission/Discharge Info Admit Date/Time Jan 13, 2017 at 15:15 Discharge Date/Time January 25, 2017 at 1300 Discharge Diagnosis Post repeat date 3 Patient Condition: Good Procedures Repeat Hx of Present Illness at 35 weeks and 2 days history of previous suspected IUGR with low BARRY Hospital Course Satisfactory recovery uneventful Home Meds Active Scripts Acetaminophen* (Tylophen*) 500 Mg Capsule, 1 CAP PO Q6H Y for PAIN AND OR ELEVATED TEMP, #20 CAP Prov:ANGELA SHAHID NP 09/03/16 Follow-up Plan Post instruction given recommended to make appointment to be seen at the clinic in 1 week Primary Care Provider Care Physician No Primary Time spent on discharge: < 30 minutes MARISABEL PIMENTEL MD Jan 25, 2017 13:10
== END 2017-01-25 16:55 | disposition home or self-care (01) | DRG 765 ==
LOC: L-D 12:03 → OBT 12:03 → L-D 15:15 → PP1 01-15 19:55 → L-D 01-22 11:07 → PP1 01-22 22:03
PROVIDERS: ADMIT Obstetrics & Gynecology; ATTEND Obstetrics & Gynecology
PROC: 3E033VJ Introduction of Other Hormone into Peripheral Vein, Percutaneous Approach (ICD-10-PCS; 2017-01-22)
PROC: 10D00Z1 Extraction of Products of Conception, Low, Open Approach (ICD-10-PCS; principal; 2017-01-22 17:00)
DX: O60.14X0 Preterm labor third trimester with preterm delivery third trimester, not applicable or unspecified (principal); O41.03X0 Oligohydramnios, third trimester, not applicable or unspecified; O34.211 Maternal care for low transverse scar from previous cesarean delivery; O76 Abnormality in fetal heart rate and rhythm complicating labor and delivery; Z3A.35 35 weeks gestation of pregnancy; Z37.0 Single live birth
CPT/HCPCS: 36415; 76816; 76818; 76820; 80053; 81003; 84112; 85025; 85610; 85730; 86592; 86850; 86900; 86901; 88307; 90686; 90715; 93970; 94760; 96360; 96361; 99464; G0463; J0690; J0702; J1885; J2270; J2274; J2405; J2590; J2765; J7120